=== PATIENT | female | born 1955 | race Hispanic/Latino ===

== ENCOUNTER → 2016-08-14 | Outpatient (CLI) | payer OTHER ==
[~2016-08-14] MED LIST: APRESOLINE25 MG PO; BISACODYL5 MG PO; CELEXA20 MG PO; COLACE100 MG PO; DECADRON4 MG/ML 1M IV; DUONEB 2.5-0.5 M3 ML PEP; LEVETIRACETAM500 MG PO; LIDOCAINE700 MG TD; MAG-AL PLUS SUS30 ML PO; OXAYDO5 MG PO; OXYCODONE HCL5 MG PO; PROTONIX40 MG PO; SENNA LAX8.6 MG PO; TRAZODONE HCL50 MG PO; TYLENOL REGULA325 MG PO; ZOLOFT50 MG PO
== END | disposition home or self-care (01) ==
LOC: CDC 12:01
DX: R94.31 Abnormal electrocardiogram [ECG] [EKG] (principal); M48.56XD Collapsed vertebra, not elsewhere classified, lumbar region, subsequent encounter for fracture with routine healing
CPT/HCPCS: 93000

== ENCOUNTER 2016-08-23 14:49 | Day surgery (SDC) | payer OTHER, BC ==
[~2016-08-23] VITALS: Ht 160 cm; Wt 83.6 kg
[2016-08-23 15:48] VITALS: BP 146/78
== END 2016-08-23 19:35 | disposition home or self-care (01) ==
LOC: SDC
PROC: 0SJ Lower Joints, Inspection (ICD-10-PCS; principal; 2016-08-23)
DX: M48.56XA Collapsed vertebra, not elsewhere classified, lumbar region, initial encounter for fracture (principal); M54.5 Low back pain; Z53.29 Procedure and treatment not carried out because of patient's decision for other reasons